=== PATIENT | male | born 1990 | race Caucasian/White ===

== ENCOUNTER 2017-04-07 17:28 | Emergency (ER) | payer BC ==
[2017-04-07 17:36] VITALS: BP 116/71; PULSE 81; RESP 16; TEMP 97.7; O2SAT 96
--- NOTE | 2017-04-07 17:58 | EDPHY ---
H & P Stated Complaint: Injury to R 5th finger; +deformity Time Seen by Provider: 04/07/17 17:54 HPI/ROS: HPI: This is a 26-year-old male presents with Chief Complaint: Right little finger dislocation Location: Right little finger Quality: Dislocation Duration: 45 min prior to arrival Signs and Symptoms: No bleeding, no radiation, no numbness, no weakness, no tingling, no incontinence, + decreased range of motion, + swelling, + pain Timing: Acute Severity: 09/25 Context: Patient is right-hand dominant, was climbing, when he lost his balance and started to fall 10 ft he used his right hand pinky finger to stop his fall. Due to the meant meant tip of his body he swung around causing his right little finger to become dislocated. He felt immediate, moderate, nonradiating constant pain. He denies head injury/LOC/paresthesias/skin color changes/neck pain. He was climbing with a franki who drove him directly to the emergency room. No prior history of dislocations. Modifying Factors: None Comment: ROS: see HPI Constitutional: No fever, no chills, no weight loss Eyes: No blurred vision Respiratory: No shortness of breath, no cough Cardiovascular: No chest pain Gastrointestinal: No nausea, no vomiting no diarrhea Genitourinary: No dysuria Extremities: No myalgias Neurologic: No weakness, no numbness Skin: No rashes Hematologic: No bruising, no bleeding MEDICAL/SURGICAL/SOCIAL HISTORY: Medical history: Generally healthy. Does not take any regular medications. Surgical history: Denies Social history: Employed. CONSTITUTIONAL: Polite and cooperative adult white male, awake and alert, no obvious distress HEENT: Atraumatic and normocephalic, PERRL, EOMI. Tympanic membranes clear. Oropharynx clear, no exudate and moist pink mucosa. Airway patent. No lymphadenopathy. No meningismus. Cardiovascular: Normal S1/S2, regular rate, regular rhythm, without murmur rub or gallop. PULMONARY/CHEST: Symmetrical and nontender. Clear to auscultation bilaterally. Good air movement. No accessory muscle usage. ABDOMEN: Soft, nondistended, nontender, no rebound, no guarding, no peritoneal signs, no masses or organomegaly. No CVAT. EXTREMITIES: 2/2 radial pulses, wire brush maker strength 5/5, right 5th digit PIP deformity with ulnar deviation; light touch sensation intact. Small superficial abrasion noted over the palmar portion of the PIP joint. no clubbing, no cyanosis or edema. NEUROLOGICAL: no focal neuro deficits. GCS 15. SKIN: Warm and dry, no erythema. no rash. Good capillary refill. Source: Patient Exam Limitations: No limitations - Personal History Current Tetanus Diphtheria and Acellular Pertussis (TDAP): Yes - Medical/Surgical History Other PMH: none - Social History Smoking Status: Never smoked Constitutional: Initial Vital Signs Temperature (C) 36.5 C 04/07/17 17:33 Heart Rate 81 04/07/17 17:33 Respiratory Rate 16 04/07/17 17:33 Blood Pressure 116/71 04/07/17 17:33 O2 Sat (%) 96 04/07/17 17:33 O2 Delivery Mode Room Air Allergies/Adverse Reactions: No Known Allergies Allergy (Unverified 04/07/17 17:33) Home Medications: Medication Instructions Recorded NK [No Known Home Meds] 04/07/17 Medical Decision Making - Diagnostics Imaging Results: Imaging Impressions Finger X-Ray 04/07/17 17:39 Impression: Dorsal dislocation. 2. Right Fifth Finger, 3 views, 17:53 History: Post reduction Findings: The fifth PIP joint is relocated. There is a small cortical impaction of the proximal endplate of the middle phalanx. On the lateral view there is a small rotated avulsion fragment along the palmar aspect of the PIP joint. Impression: Successful reduction of the PIP joint dislocation. There are associated posttraumatic fractures. Please see above. Procedures: Procedure: Dislocation reduction. The dislocation of the right 5th digit PIP joint was reduced using counter traction technique without complications. Post reduction the patient's neurovascular exam is normal. 3 mL of 1% lidocaine without epinephrine were injected directly into the PIP joint for digital block. Post reduction x-ray demonstrates reduction of the joint to the anatomic position. The procedure was performed by myself. Procedure: Splint placement. A right finger splint was applied by the Emergency Room instrumentation technician and the 5th and 4th digits were franki taped. After application of the splint I returned and re-examined the patient. The splint was adequately immobilizing the joint and distal to the splint the patient's circulation and sensation was intact. ED Course/Re-evaluation: Initial x-ray shows dislocation at the PIP joint; digital block performed and reduction x1 was successful. Post reduction films were reviewed at bedside and shows small avulsion fracture. Patient has return of full range of motion and light touch sensation status post reduction. No signs of neurovascular compromise/tenting of skin/compartment syndrome/ extremities and joints examined above and below area of concern and are neurovascularly intact. Abrasion cleaned with soap and water and copiously irrigated; bacitracin applied , then Xeroform. Placed in finger splint and franki tape. Orthopedic follow-up. This patient was seen under the supervision of my primary supervising physician. I evaluated care for this patient independently. Discussed this patient with Dr. Pitt who did not see the patient. Differential Diagnosis: Differential diagnosis includes but is not limited to phalanx fracture, dislocation, nerve injury, tendon injury. Departure - Departure Disposition: Home, Routine, Self-Care Clinical Impression: Closed dislocation of right little finger, Abrasion of right little finger, initial encounter Condition: Good Instructions: Finger Dislocation (ED) Additional Instructions: Keep the splint dry and in place until seen by Orthopedics for follow-up. After 48 hours, you may remove the dressing; wash the site daily with mild soap and water; then pat dry. Take Tylenol 650 mg every 4 hours and/or Ibuprofen 600 mg every 8 hours with food as needed for pain. Apply ice for 30 minutes at a time; 2-3 times per day for the next 1-2 days. Follow up with Orthopedics in 5-7 days at which time they will evaluate and recommend with you if conservative management versus adjuvant therapy is indicated. The x-rays obtained in the emergency department today demonstrate no evidence of an obvious fracture. Sometimes fractures are not obvious on the initial set of x-rays performed in the ED. For this reason, you should have repeat x-rays performed in 7-10 days if you are having any pain exclude the possibility of an occult fracture. Referrals: Gold Adams MD [Medical Doctor] - As per Instructions
== END 2017-04-07 18:24 | disposition home or self-care (01) ==
PROC: 0RSWXZZ Reposition Right Finger Phalangeal Joint, External Approach (ICD-10-PCS; principal; 2017-04-07)
DX: S63.286A Dislocation of proximal interphalangeal joint of right little finger, initial encounter (principal); W17.89XA Other fall from one level to another, initial encounter; Y99.0 Civilian activity done for income or pay; Y93.39 Activity, other involving climbing, rappelling and jumping off
CPT/HCPCS: L3925